=== PATIENT | male | born 1990 | race African-American/Black ===

== ENCOUNTER 2016-11-25 01:10 | Emergency (ER) | payer OTHER ==
[~2016-11-25] VITALS: Ht 177.8 cm; Wt 72.6 kg
[~2016-11-25 01:10] MED LIST: CIPROFLOXACIN500 M1 PO; FLAGYL500 MG PO; IBUPROFEN 800800 M1 PO; NORCO 5-325 TA1 EACH PO; ULTRAM 50MG TAB50 MG PO
[2016-11-25 01:47] LABS: ABSOLUTE NEUTROPHILS 7.4 thou/uL (1.4-8.2); BASOPHILS 0.5 % (0.0-2.0); EOSINOPHILS 1.7 % (0.0-3.0); HEMATOCRIT 42.4 % (42.0-52.0); HEMOGLOBIN 14.2 gm/dL (14.0-18.0); LYMPHOCYTES 13.8 % (24.0-44.0); MCH 31.5 pg (26.0-34.0); MCHC 33.5 % (28.0-37.0); MCV 93.8 fL (80.0-100.0); MONOCYTES 4.7 % (1.0-8.0); PLATELET COUNT 200 thou/uL (150-400); POLYS 79.3 % (36.0-66.0); RBC 4.52 mil/uL (4.50-6.00); RDW 13.4 % (10.5-14.5); WBC 9.3 thou/uL (4.0-11.0)
[2016-11-25 01:48] LABS: MANUAL DIFF NO
[2016-11-25 02:00] LABS: CALCIUM 9.3 mg/dL (8.5-10.1); CREATININE 0.8 mg/dL (0.6-1.3); POTASSIUM 3.4 mmol/L (3.5-5.1)
[2016-11-25 02:02] LABS: ALBUMIN 4.6 g/dL (3.4-5.0); DIRECT BILIRUBIN 0.1 mg/dL (<0.1-0.3); TOTAL BILIRUBIN 0.4 mg/dL (<0.1-1.0); TOTAL PROTEIN 8.2 g/dL (6.4-8.2)
[2016-11-25 02:49] LABS: URINE BILIRUBIN NEGATIVE (Negative); URINE BLOOD TRACE (Negative); URINE COLOR YELLOW; URINE GLUCOSE-RANDOM* NEGATIVE (Negative); URINE KETONES 3+ (Negative); URINE LEUKOCYTES-REFLEX NEGATIVE (Negative); URINE PROTEIN (DIPSTICK) TRACE (Negative); URINE SPECIFIC GRAVITY 1.025 (1.003-1.035); URINE UROBILINOGEN 0.2 E.U./dl (0.2-1.0)
[2016-11-25 03:30] VITALS: BP 121/84
[2016-11-25] MEDS ORDERED: ZOFRAN ODT4 MG PO (03:38)
[2016-11-25] MEDS ORDERED: NORCO 5-325 TA1 EACH PO (03:38)
== END 2016-11-25 03:33 | disposition home or self-care (01) ==
LOC: ER 01:10
PROVIDERS: Emergency Medicine
DX: R10.10 Upper abdominal pain, unspecified (principal)